=== PATIENT | female | born 2000 | race Caucasian/White ===

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

== ENCOUNTER → 2022-01-28 | Outpatient (CLI) | payer OTHER ==
[~2022-01-28] MED LIST changes: +CEPHALEXIN500 M1 PO
== END ==
LOC: GENOP 10:36
DX: O99.891 Other specified diseases and conditions complicating pregnancy (principal); R10.30 Lower abdominal pain, unspecified; M54.9 Dorsalgia, unspecified; O99.343 Other mental disorders complicating pregnancy, third trimester; F31.9 Bipolar disorder, unspecified; F41.9 Anxiety disorder, unspecified; Z87.891 Personal history of nicotine dependence; Z88.1 Allergy status to other antibiotic agents; Z79.899 Other long term (current) drug therapy; Z3A.33 33 weeks gestation of pregnancy
CPT/HCPCS: 81001; G0463

== ENCOUNTER 2022-02-12 11:51 | Outpatient (CLI) | payer OTHER ==
[2022-02-12 12:58] LABS: HEMOGLOBIN 12.6 gm/dl (12.3-15.3); RED BLOOD COUNT 4.27 M/UL (4.00-5.10); WHITE BLOOD COUNT 11.2 K/UL (4.5-11.0)
[2022-02-12 13:24] LABS: BUN/CREATININE RATIO 12 (0-10)
== END 2022-02-12 14:21 | disposition home or self-care (01) ==
LOC: GENOP 11:51
PROVIDERS: Obstetrics & Gynecology
DX: O13.3 Gestational [pregnancy-induced] hypertension without significant proteinuria, third trimester (principal); O99.213 Obesity complicating pregnancy, third trimester; E66.01 Morbid (severe) obesity due to excess calories; O99.343 Other mental disorders complicating pregnancy, third trimester; F31.9 Bipolar disorder, unspecified; F43.10 Post-traumatic stress disorder, unspecified; Z3A.36 36 weeks gestation of pregnancy; Z87.891 Personal history of nicotine dependence
CPT/HCPCS: 36415; 80053; 82570; 83615; 84156; 84550; 85025; G0463

== ENCOUNTER 2022-02-17 20:59 | Outpatient (CLI) | payer OTHER ==
[2022-02-17 21:57] LABS: RED BLOOD COUNT 3.95 M/UL (4.00-5.10); WHITE BLOOD COUNT 12.2 K/UL (4.5-11.0)
[2022-02-17 22:23] LABS: BUN/CREATININE RATIO 20 (0-10)
== END 2022-02-17 23:47 | disposition home or self-care (01) ==
LOC: GENOP 20:59
PROVIDERS: Obstetrics & Gynecology
DX: O16.3 Unspecified maternal hypertension, third trimester (principal); O99.343 Other mental disorders complicating pregnancy, third trimester; F31.9 Bipolar disorder, unspecified; F43.10 Post-traumatic stress disorder, unspecified; Z3A.36 36 weeks gestation of pregnancy
CPT/HCPCS: 80053; 81001; 82570; 84156; 85025; G0463; J7120

== ENCOUNTER 2022-02-19 12:59 | Inpatient (IN) | payer OTHER ==
[~2022-02-19] VITALS: Ht 162.6 cm; Wt 119.7 kg
[2022-02-19 13:49] LABS: HEMOGLOBIN 12.3 gm/dl (12.3-15.3); WHITE BLOOD COUNT 12.5 K/UL (4.5-11.0)
[2022-02-19 14:08] LABS: BUN/CREATININE RATIO 16 (0-10)
[2022-02-19] MEDS ORDERED: LATUDA40 MG PO (16:24)
[2022-02-19] MEDS ORDERED: PRENATAL TABLE1 EAC1 PO (16:25)
[2022-02-20] MEDS ORDERED: HYDROCODON-ACE1 EAC4 PO (20:12)
[2022-02-20] MEDS ORDERED: IBUPROFEN800 MG PO (20:12)
[2022-02-20] MEDS ORDERED: COLACE 100MG C100 MG PO (20:12)
[2022-02-21 02:16] LABS: HEMOGLOBIN 10.6 gm/dl (12.3-15.3)
--- NOTE | 2022-02-21 08:42 | NUR ---
MAGNESIUM DRIP STARTED PER PREVIOUS SHIFT STARTED AT 1950 PER PREVIOUS SHIFT SPOKE WITH DR DUFFY REGARDING ORDER FOR MAG DRIP SHE VERBALIZED SHE WOULD PUT IN THE ORDER SPOKE WITH PHARMACY MAG DRIP IS NOT ON EMAR OR PROFILE TO PULL IN OMNICELL LAB ORDERS PREVIOUSLY PUT IN FOR DRIP NOTED LAST CHECK AT 0800 WITHIN LIMITS WILL CONTINUE TO MONITOR BP
[2022-02-22] MEDS ORDERED: TRANDATE 100 M100 MG PO (08:11)
== END 2022-02-22 13:43 | disposition home or self-care (01) | DRG 807 ==
LOC: GENOP 12:59 → OB 13:21
PROVIDERS: Obstetrics & Gynecology; ADMIT Obstetrics & Gynecology
PROC: 10E0XZZ Delivery of Products of Conception, External Approach (ICD-10-PCS; principal; 2022-02-20)
PROC: 0KQM0ZZ Repair Perineum Muscle, Open Approach (ICD-10-PCS; 2022-02-20)
PROC: 3E033VJ Introduction of Other Hormone into Peripheral Vein, Percutaneous Approach (ICD-10-PCS; 2022-02-20)
PROC: 10907ZC Drainage of Amniotic Fluid, Therapeutic from Products of Conception, Via Natural or Artificial Opening (ICD-10-PCS; 2022-02-20)
PROC: 4A1HXCZ Monitoring of Products of Conception, Cardiac Rate, External Approach (ICD-10-PCS; 2022-02-20)
PROC: 4A1HXFZ Monitoring of Products of Conception, Cardiac Rhythm, External Approach (ICD-10-PCS; 2022-02-20)
DX: O13.4 Gestational [pregnancy-induced] hypertension without significant proteinuria, complicating childbirth (principal); Z37.0 Single live birth; O14.14 Severe pre-eclampsia complicating childbirth; Z3A.37 37 weeks gestation of pregnancy; Z86.16 Personal history of COVID-19; Z87.891 Personal history of nicotine dependence; Z20.822 Contact with and (suspected) exposure to COVID-19; O70.1 Second degree perineal laceration during delivery
CPT/HCPCS: 36415; 80053; 81001; 82570; 82800; 83615; 83735; 84156; 84550; 85014; 85018; 85025; 90471; 90715; J0610; J1885; J2590; J3475; J7120; U0002

== ENCOUNTER 2022-03-17 09:51 | Observation (INO) | payer OTHER ==
[~2022-03-17] VITALS: Ht 162.6 cm; Wt 112.5 kg
[~2022-03-17 09:51] MED LIST changes: +AMOX TR-K CLV1 EAC4 PO; +COLACE 100MG C100 MG PO; +HYDROCODON-ACE1 EAC4 PO; +IBUPROFEN800 MG PO; +LATUDA40 MG PO; +PRENATAL TABLE1 EAC1 PO; +TRANDATE 100 M100 MG PO
[2022-03-17 10:22] LABS: HEMOGLOBIN 12.5 gm/dl (12.3-15.3); RED BLOOD COUNT 4.42 M/UL (4.00-5.10); WHITE BLOOD COUNT 14.9 K/UL (4.5-11.0)
[2022-03-17 10:57] LABS: BUN/CREATININE RATIO 11 (0-10)
[2022-03-18] MEDS ORDERED: HYDROCODON-ACE1 EAC4 PO (11:35)
[2022-03-19 19:12] LABS: CHLAMYDIA BY NAA Negative (Negative); GONOCOCCUS BY NAA Negative (Negative); TRICH VAG BY NAA Negative (Negative)
[2022-03-19 21:11] LABS: CHLAMYDIA TRACHOMATIS, NAA Negative (Negative); NEISSERIA GONORRHOEAE, NAA Negative (Negative)
== END 2022-03-18 14:35 | disposition home or self-care (01) ==
LOC: ER1 09:51 → CDU 13:56 → M/S 17:04
PROVIDERS: Emergency Medicine; ADMIT Surgery
PROC: 0DTJ4ZZ Resection of Appendix, Percutaneous Endoscopic Approach (ICD-10-PCS; principal; 2022-03-17 15:11)
DX: K35.30 Acute appendicitis with localized peritonitis, without perforation or gangrene (principal); I10 Essential (primary) hypertension; Z88.1 Allergy status to other antibiotic agents; Z79.899 Other long term (current) drug therapy; Z20.822 Contact with and (suspected) exposure to COVID-19
CPT/HCPCS: 0240U; 80053; 81001; 83605; 83690; 84703; 85025; 87040; 87210; 87661; 96365; 99285; G0378; J0780; J1100; J1170; J1335; J1885; J2001; J2250; J2405; J2704; J3010; J3480; J7030; J7120; Q9967

== ENCOUNTER → 2022-07-18 | Emergency (ER) | payer OTHER | END | disposition left against medical advice (07) | LOC: ER1 12:50 | DX: Z53.21 Procedure and treatment not carried out due to patient leaving prior to being seen by health care provider (principal) ==

== ENCOUNTER → 2022-08-02 | Outpatient (CLI) | payer OTHER | LOC: LAB 12:40 | DX: E05.90 Thyrotoxicosis, unspecified without thyrotoxic crisis or storm (principal) | CPT/HCPCS: 36415; 84439; 84443; 84480 ==